=== PATIENT | female | born 1945 | race Hispanic/Latino ===

== ENCOUNTER 2018-04-27 13:34 | Observation (INO) | payer MEDICAID, OTHER, SELFPAY ==
--- NOTE | 2018-04-27 14:21 | RAD REPORT ---
EXAM DESCRIPTION: RAD - Chest Pa And Lat (2 Views) - 04/27/2018 2:13 pm CLINICAL HISTORY: COUGH Chest pain. COMPARISON: No comparisons FINDINGS: Large area of lung consolidation is seen in the anterior right lung base. In the correct c linical setting, this could represent pneumonia. Neoplasm is another possibility. The heart is mildly prominent size. No displaced fractures. Aortic atherosclerosis.
--- NOTE | 2018-04-27 15:26 | EKG ---
Test Date: 2018-04-27 Test Time: 14:54:47 Electric Blasting Cap Assembler: ROBERTO MEASUREMENT RESULTS: Intervals: Rate: 67 MT: 164 QRSD: 80 QT: 366 QTc: 386 [place]: P: 67 MT: 164 QRS: 51 T: 47 INTERPRETIVE STATEMENTS: Normal sinus rhythm Normal ECG No previous ECG available for comparison Electronically Signed On 04-27-18 15:25:13 CDT by Andrei Talley
[2018-04-27 15:40] LABS: Absolute Lymphocytes (CBC) 1.3 K/uL (0.7-4.9); Absolute Monocytes 0.8 K/uL (0.1-1.3); Absolute Neutrophil 10.1 K/uL (1.8-8.0); Basophils % 0.4 % (0-1.3); Hematocrit 30.3 % (36.0-45.0); Lymphocytes % 10.2 % (15.3-44.8); MCH 29.1 pg (27.0-35.0); MCV 87.3 fL (80-100); MPV 8.7 fL (7.6-11.3); Monocytes % 6.7 % (3.3-12.3); RBC Red Blood Cell Count 3.47 M/uL (3.86-4.86)
[2018-04-27 16:08] LABS: ALT/SGPT 20 U/L (12-78); AST/SGOT 21 U/L (15-37); Albumin 2.8 g/dL (3.4-5.0); Alkaline Phosphatase 73 U/L (45-117); BUN Blood Urea Nitrogen 27 mg/dL (7-18); Bicarbonate 30 mmol/L (21-32); Bilirubin Direct < 0.1 mg/dL (0-0.2); Bilirubin Total 0.2 mg/dL (0.2-1.0); CKMB Creatine Kinase MB < 1.0 ng/mL (0.3-3.6); Creatine Phosphokinase 18 U/L (26-192); Glucose Level 109 mg/dL (74-106); NT PRO-BNP 1207 pg/mL (<450); Potassium 4.4 mmol/L (3.5-5.1); Protein, Total 7.5 g/dL (6.4-8.2); Sodium Level 132 mmol/L (136-145)
[2018-04-27 16:11] LABS: Protime INR 1.19
[2018-04-27] MEDS ORDERED: NA CHLORIDE 0.9% 1,000 ML ONE (16:45)
--- NOTE | 2018-04-27 16:48 | RAD REPORT ---
EXAM DESCRIPTION: CT - Chest For Pe Angio - 04/27/2018 4:36 pm CLINICAL HISTORY: Chest pain COMPARISON: None. TECHNIQUE: Dynamically enhanced axial 3 mm thick images of the chest were obtained during administra tion of <100> mL Isovue 370 IV contrast. Coronal and oblique reconstruction images were generated and reviewed. Exam utilizes a protocol for optimal evaluation of pulmonary arterial tree. Maximum intensity projections 3D imaging was utilized All CT scans are performed using dose optimization technique as appropriate and may include automated exposure control or mA/KV adjustment according to patient size. FINDINGS: A pulmonary embolus is not seen. A thoracic aortic aneurysm is not noted. A small right pleural effusion is present. A pericardial effusion is not seen. A 10 centimeter mass occupies the right middle lobe extending through the chest wall and destroying s everal right ribs. Portions of the mass or necrotic. A right pretracheal mediastinal lymph node measures 15 millimeters. Mild right hilar lymphadenopathy is present. IMPRESSION: Negative for a pulmonary embolism. 10 centimeter right middle lobe mass invading into the right anterolateral chest wall and destroying several ribs consistent with neoplasm. Enlarged right hilar and mediastinal lymph nodes are present
--- NOTE | 2018-04-27 17:17 | ER ---
Nurse's Notes [facility] Name: Yayo Ospina Age: 73 yrs Sex: Female : 1945 Arrival Date: 04/27/2018 Time: 13:45 Bed 28 Private MD: Diagnosis: Malignant neoplasm of middle lobe, bronchus or lung-with rib metastasis Presentation: 04/27 13:48 Presenting complaint: Patient states: Right chest wall pain for 2 months. Seen by [facility] aj 1 month ago and DX with pneumonia, did not improve after meds. Transition of care: patient was not received from another setting of care. Onset of symptoms was February 2018. Risk Assessment: Do you want to hurt yourself or someone else? Patient reports no desire to harm self or others. Initial Sepsis Screen: Does the patient meet any 2 criteria? No. Patient's initial sepsis screen is negative. Does the patient have a suspected source of infection? No. Patient's initial sepsis screen is negative. Care prior to arrival: None. 13:48 Method Of Arrival: Wheelchair 13:48 Acuity: NIKO 3 Triage Assessment: 13:50 General: Appears in no apparent distress. comfortable, Behavior is calm, cooperative, aj appropriate for age. Pain: Complains of pain in anterior aspect of right upper chest, right lateral posterior chest, right lateral anterior chest and right breast. Neuro: Level of Consciousness is awake, alert, obeys commands, Oriented to person, place, time, situation, Appropriate for age. Cardiovascular: Capillary refill < 3 seconds in bilateral fingers Patient's skin is warm and dry. Respiratory: Airway is patent Respiratory effort is even, unlabored, Respiratory pattern is regular, symmetrical. Derm: Skin is intact, is healthy with good turgor, Skin is pink, warm \T\ dry. normal. 13:50 Respiratory: Reports cough that is. aj Historical: - Allergies: 13:50 No Known Allergies; aj - Home Meds: 13:50 None [Active]; aj - PMHx: 13:50 Hypertension; aj - PSHx: 13:50 None; aj - Immunization history:: Adult Immunizations up to date. - Social history:: Smoking status: Patient/guardian denies using tobacco, the patient reports quitting approximately .2 years ago. - Ebola Screening: : Patient negative for fever greater than or equal to 101.5 degrees Fahrenheit, and additional compatible Ebola Virus Disease symptoms Patient denies exposure to infectious person Patient denies travel to an Ebola-affected area in the 21 days before illness onset No symptoms or risks identified at this time. Screenin:30 Abuse screen: Denies threats or abuse. Denies injuries from another. Nutritional ed1 screening: No deficits noted. Tuberculosis screening: No symptoms or risk factors identified. Fall Risk No fall in past 12 months (0 pts). No secondary diagnosis (0 pts). IV access (20 points). Ambulatory Aid- None/Bed Rest/Nurse Assist (0 pts). Gait- Normal/Bed Rest/Wheelchair (0 pts) Mental Status- Oriented to own ability (0 pts). Total Sheffield Fall Scale indicates No Risk (0-24 pts). Assessment: 15:30 General: Appears uncomfortable, Behavior is calm, cooperative. Pain: Complains of pain ed1 in chest Pain does not radiate. Pain currently is 6 out of 10 on a pain scale. Quality of pain is described as aching, Pain began 2-3 days ago. Is continuous. Neuro: Level of Consciousness is awake, alert, obeys commands, Oriented to person, place, time, situation. Cardiovascular: Heart tones S1 S2 present. Respiratory: Reports shortness of breath at rest Airway is patent Respiratory effort is even, unlabored, Respiratory pattern is regular, symmetrical, Breath sounds are diminished in right lower lobe. GI: No signs and/or symptoms were reported involving the gastrointestinal system. : No signs and/or symptoms were reported regarding the genitourinary system. EENT: No signs and/or symptoms were reported regarding the EENT system. Derm: Skin is pink, warm \T\ dry. 15:45 General: The previous assessment is accurate. Call light remains within reach. . ss 16:46 Reassessment: Patient appears in no apparent distress at this time. No changes from ed1 previously documented assessment. Patient and/or family updated on plan of care and expected duration. Pain level reassessed. Patient is alert, oriented x 3, equal unlabored respirations, skin warm/dry/pink. Patient states symptoms have not improved. 18:56 Reassessment: Patient appears in no apparent distress at this time. No changes from ed1 previously documented assessment. Patient and/or family updated on plan of care and expected duration. Pain level reassessed. Patient is alert, oriented x 3, equal unlabored respirations, skin warm/dry/pink. Vital Signs: 13:50 BP 119 / 61; Pulse 74; Resp 20; Temp 99.5; Pulse Ox 94% on R/A; Weight 65.32 kg; Height aj 4 ft. 11 in. (149.86 cm); 15:40 BP 117 / 86; Pulse 78; Resp 20; Temp 98.9(O); Pulse Ox 98% on R/A; Pain 6/10; ed1 16:46 BP 140 / 69; Pulse 66; Resp 22; Pulse Ox 96% on R/A; Pain 6/10; ed1 18:56 BP 129 / 85; Pulse 75; Resp 22; Pulse Ox 97% on R/A; Pain 1/10; ed1 19:29 BP 147 / 53; Pulse 74; Resp 20; Temp 97.2(O); Pulse Ox 97% on R/A; Pain 0/10; ed1 13:50 Body Mass Index 29.08 (65.32 kg, 149.86 cm) ED Course: 13:45 Patient arrived in ED. 13:50 Triage completed. 13:50 Arm band placed on right wrist. Patient placed in waiting room, Patient notified of wait time. X-ray ordered. 14:10 Patient moved to radiology via wheelchair. [facility] 14:11 X-ray completed. Patient tolerated procedure well. [facility] 14:11 Chest Pa And Lat (2 Views) XRAY In Process Unspecified. EDTX 14:11 Patient moved back from radiology. 1 15:27 Ale Kilgore LVN is Primary Nurse. ed1 15:30 Marycarmen Beal FNP-C is PHCP. snw 15:30 César Garcia MD is Attending Physician. snw 15:30 Patient has correct armband on for positive identification. Placed in gown. Bed in low ed1 position. Call light in reach. Side rails up X2. Adult w/ patient. monitoring specialist on. Pulse ox on. NIBP on. 15:30 Initial lab(s) drawn, by ED staff, sent to lab. Inserted saline lock: 20 gauge in right ed1 antecubital area, using aseptic technique. Blood collected. Patient maintains SpO2 saturation greater than 95% on room air. 16:[address] mw3 16:37 CT Chest For PE Angio In Process Unspecified. EDMS 17:15 Enma Feliz MD is Hospitalizing Provider. snw 20:28 No provider procedures requiring assistance completed. Patient admitted, IV remains in ed1 place. intact, No redness/swelling at site. Administered Medications: 16:49 Drug: NS 0.9% 1000 ml Route: IV; Rate: 75 ml/hr; Site: right antecubital; ed1 20:36 Follow up: IV Status: Infusion continued upon admission ed1 17:52 Drug: fentaNYL (PF) 50 mcg Route: IVP; Site: right antecubital; 20:37 Follow up: Response: No adverse reaction; Pain is decreased ed1 Outcome: 17:16 Decision to Hospitalize by Provider. snw 20:28 Admitted to Tele accompanied by nurse, family with patient, via wheelchair, room 419, ed1 with chart. 20:28 Condition: stable 20:28 Discharge instructions given to patient, family, Instructed on the need for admit, Demonstrated understanding of instructions. 20:35 Patient left the ED. ed1 Signatures: Dispatcher [employer] EDMS Obdulia Tenorio, RN RN Marycarmen Leiva, CORRECTIONAL FACILITY PSYCHIATRIST-C CORRECTIONAL FACILITY PSYCHIATRIST-Csnw Claudia Blevins 1 Suzan Lennon, ÁLVARO RN Ale Vuong LVN REGULATORY CONSULTANT ed1 Megan Harper mw3
--- NOTE | 2018-04-27 17:17 | EDPHYS ---
Physician Documentation [facility] Name: Yayo Ospina Age: 73 yrs Sex: Female : 1945 Arrival Date: 04/27/2018 Time: 13:45 Bed 28 Private MD: ED Physician César Garcia HPI: 04/27 15:58 This 73 yrs old Female presents to ER via Wheelchair with complaints of Chest snw Wall Pain. 15:58 Onset: The symptoms/episode began/occurred gradually, 2 month(s) ago, and became snw persistent. Associated signs and symptoms: Pertinent positives: chest wall pain, cough, no fever, + significant weight loss. Stopped smoking about 2 months ago when s/s began. It is unknown whether or not the patient has had similar symptoms in the past. one month ago at [facility] dx with right lower lobe pneumonia, took antibiotics without change in condition. Historical: - Allergies: 13:50 No Known Allergies; aj - Home Meds: 13:50 None [Active]; aj - PMHx: 13:50 Hypertension; aj - PSHx: 13:50 None; aj - Immunization history:: Adult Immunizations up to date. - Social history:: Smoking status: Patient/guardian denies using tobacco, the patient reports quitting approximately .2 years ago. - Ebola Screening: : Patient negative for fever greater than or equal to 101.5 degrees Fahrenheit, and additional compatible Ebola Virus Disease symptoms Patient denies exposure to infectious person Patient denies travel to an Ebola-affected area in the 21 days before illness onset No symptoms or risks identified at this time. ROS: 15:58 Eyes: Negative for injury, pain, redness, and discharge, ENT: Negative for injury, snw pain, and discharge, Neck: Negative for injury, pain, and swelling. 15:58 Abdomen/GI: Negative for abdominal pain, nausea, vomiting, diarrhea, and constipation, Back: Negative for injury and pain, : Negative for injury, bleeding, discharge, and swelling, MS/Extremity: Negative for injury and deformity, Skin: Negative for injury, rash, and discoloration, Neuro: Negative for headache, weakness, numbness, tingling, and seizure. 15:58 Constitutional: Positive for fatigue, malaise, poor PO intake. 15:58 Cardiovascular: Positive for chest wall pain to right lower chest. 15:58 Respiratory: Positive for cough, dyspnea on exertion, pleurisy. Exam: 16:00 Head/Face: Normocephalic, atraumatic. Eyes: Pupils equal round and reactive to light, snw extra-ocular motions intact. Lids and lashes normal. Conjunctiva and sclera are non-icteric and not injected. Cornea within normal limits. Periorbital areas with no swelling, redness, or edema. ENT: Nares patent. No nasal discharge, no septal abnormalities noted. Tympanic membranes are normal and external auditory canals are clear. Oropharynx with no redness, swelling, or masses, exudates, or evidence of obstruction, uvula midline. Mucous membranes moist. Neck: Trachea midline, no thyromegaly or masses palpated, and no cervical lymphadenopathy. Supple, full range of motion without nuchal rigidity, or vertebral point tenderness. No Meningismus. Chest/axilla: Normal chest wall appearance and motion. Nontender with no deformity. No lesions are appreciated. Cardiovascular: Regular rate and rhythm with a normal S1 and S2. No gallops, murmurs, or rubs. Normal PMI, no JVD. No pulse deficits. 16:00 Abdomen/GI: Soft, non-tender, with normal bowel sounds. No distension or tympany. No guarding or rebound. No evidence of tenderness throughout. Back: No spinal tenderness. No costovertebral tenderness. Full range of motion. Skin: Warm, dry with sluggish turgor. Normal color with no rashes, no lesions, and no evidence of cellulitis. MS/ Extremity: Pulses equal, no cyanosis. Neurovascular intact. Full, normal range of motion. Neuro: Awake and alert, GCS 15, oriented to person, place, time, and situation. Cranial nerves II-XII grossly intact. Motor strength 5/5 in all extremities. Sensory grossly intact. Cerebellar exam normal. Normal gait. 16:00 Constitutional: The patient appears awake, listless, uncomfortable. 16:00 Respiratory: the patient does not display signs of respiratory distress, Respirations: normal, Breath sounds: decreased breath sounds, that are moderate, that are severe, are heard in the left posterior lower lobe. Vital Signs: 13:50 BP 119 / 61; Pulse 74; Resp 20; Temp 99.5; Pulse Ox 94% on R/A; Weight 65.32 kg; Height aj 4 ft. 11 in. (149.86 cm); 15:40 BP 117 / 86; Pulse 78; Resp 20; Temp 98.9(O); Pulse Ox 98% on R/A; Pain 6/10; ed1 16:46 BP 140 / 69; Pulse 66; Resp 22; Pulse Ox 96% on R/A; Pain 6/10; ed1 18:56 BP 129 / 85; Pulse 75; Resp 22; Pulse Ox 97% on R/A; Pain 1/10; ed1 19:29 BP 147 / 53; Pulse 74; Resp 20; Temp 97.2(O); Pulse Ox 97% on R/A; Pain 0/10; ed1 13:50 Body Mass Index 29.08 (65.32 kg, 149.86 cm) aj MDM: 15:39 Patient medically screened. snw 17:16 Data reviewed: vital signs, nurses notes. Data interpreted: Pulse oximetry: on room air snw is 96 %. Interpretation: acceptable. Counseling: I had a detailed discussion with the patient and/or guardian regarding: the historical points, exam findings, and any diagnostic results supporting the discharge/admit diagnosis, the presence of at least one elevated blood pressure reading (>120/80) during this emergency department visit, lab results, radiology results, the need for further work-up and treatment in the hospital. Physician consultation: Enma Feliz MD was called at 17:17, was contacted at 17:17, regarding admission, to the telemetry unit. Special discussion: Based on the history and exam findings, there is no indication for further emergent testing or inpatient evaluation. I discussed with the patient/guardian the need to see the primary care provider for further evaluation of the symptoms. Oncology. 04/27 14:47 Order name: Basic Metabolic Panel; Complete Time: 16:11 snw 04/27 14:47 Order name: CBC with Diff; Complete Time: 15:43 snw 04/27 14:47 Order name: Ckmb; Complete Time: 16:11 snw 04/27 14:47 Order name: CPK; Complete Time: 16:11 snw 04/27 14:47 Order name: LFT's; Complete Time: 16:11 snw 04/27 14:47 Order name: Magnesium; Complete Time: 16:11 snw 04/27 14:47 Order name: NT PRO-BNP; Complete Time: 16:11 w 04/27 14:47 Order name: PT-INR; Complete Time: 16:16 [facility] 04/27 14:47 Order name: Ptt, Activated; Complete Time: 16:16 04/27 14:47 Order name: Troponin (emerg Dept Use Only); Complete Time: 16:11 w 04/27 18:12 Order name: CBC with Automated Diff EDMS 04/27 18:12 Order name: CBC with Automated Diff EDMS 04/27 18:12 Order name: CBC with Automated Diff EDMS 04/27 18:12 Order name: CBC with Automated Diff EDMS 04/27 13:52 Order name: Chest Pa And Lat (2 Views) XRAY; Complete Time: 14:45 04/27 14:46 Order name: CT Chest For PE Angio; Complete Time: 16:55 [facility] 04/27 14:47 Order name: EKG; Complete Time: 14:48 [facility] 04/27 14:47 Order name: Cardiac monitoring; Complete Time: 15:39 [facility] 04/27 18:12 Order name: CONS Physician Consult [facility] 04/27 18:12 Order name: Heart Healthy [facility] 04/27 18:12 Order name: NPO [facility] 04/27 18:12 Order name: Comprehensive Metabolic Panel [facility] 04/27 18:12 Order name: Comprehensive Metabolic Panel [facility] 04/27 18:12 Order name: Comprehensive Metabolic Panel [facility] 04/27 18:12 Order name: Comprehensive Metabolic Panel [facility] 04/27 18:21 Order name: Urinalysis W/Microscopic [facility] 04/27 14:47 Order name: EKG - Nurse/Tech; Complete Time: 15:39 04/27 14:47 Order name: IV Saline Lock; Complete Time: 15:39 [facility] 04/27 14:47 Order name: Labs collected and sent; Complete Time: 15:39 [facility] 04/27 14:47 Order name: O2 Per Protocol; Complete Time: 15:39 04/27 14:47 Order name: O2 Sat Monitoring; Complete Time: 15:39 snw Administered Medications: 16:49 Drug: NS 0.9% 1000 ml Route: IV; Rate: 75 ml/hr; Site: right antecubital; ed1 20:36 Follow up: IV Status: Infusion continued upon admission ed1 17:52 Drug: fentaNYL (PF) 50 mcg Route: IVP; Site: right antecubital; ss 20:37 Follow up: Response: No adverse reaction; Pain is decreased ed1 Disposition: 04/28 06:54 Co-signature as Attending Physician, César Garcia MD I agree with the assessment and caty plan of care. Disposition: 04/27/18 17:16 Hospitalization ordered by Enma Feliz for Observation. Preliminary diagnosis is Malignant neoplasm of middle lobe, bronchus or lung - with rib metastasis. - Bed requested for Telemetry/MedSurg (observation). - Status is Observation. ed1 - Condition is Fair. - Problem is new. - Symptoms are unchanged. UTI on Admission? No Signatures: Dispatcher [employer] EDMS Obdulia Tenorio, RN César Ly MD MD cha Therrien, Shelly, GENERAL ROAD PRODUCTION MANAGER-C GENERAL ROAD PRODUCTION MANAGER-Csnw Suzan Lennon RN RN ss Riggs, Ale, SKI LIFT OPERATOR SKI LIFT OPERATOR ed1 Kristine Garza Corrections: (The following items were deleted from the chart) 04/27 18:21 18:12 Protime (+INR) ordered. EDRI EDMS 18:21 18:12 Protime (+INR) ordered. EDRI EDMS 19:21 17:16 Hospitalization Ordered by Enma Feliz MD for Observation. Preliminary diagnosis eb is Malignant neoplasm of middle lobe, bronchus or lung - with rib metastasis. Bed requested for Telemetry/MedSurg (observation). Status is Observation. Condition is Fair. Problem is new. Symptoms are unchanged. UTI on Admission? No. snw 20:35 19:21 04/27/2018 17:16 Hospitalization Ordered by Enma Feliz MD for Observation. ed1 Preliminary diagnosis is Malignant neoplasm of middle lobe, bronchus or lung - with rib metastasis. Bed requested for Telemetry/MedSurg (observation). Status is Observation. Condition is Fair. Problem is new. Symptoms are unchanged. UTI on Admission? No. eb
[2018-04-27] MEDS ORDERED: FENTANYL CITR 100 MCG/2 ML ONE (17:53)
[2018-04-27] MEDS ORDERED: MORPHINE 4 MG/ML SYR IV PRN (18:09)
[2018-04-27] MEDS ORDERED: ACETAMINOPHEN 500 MG TAB PO PRN (18:09)
[2018-04-27] MEDS ORDERED: ALBUTEROL 2.5 MG/3 ML NEB SOL NEB PRN (18:09)
[2018-04-27] MEDS ORDERED: ONDANSETRON 4 MG/2 ML VIAL IV PRN (18:09)
[2018-04-27] MEDS: NA CHLORIDE 0.9% 1,000 ML IV SCH (21:20)
[2018-04-27 23:47] LABS: Urine Appearance CLEAR; Urine Bilirubin NEGATIVE (NEG); Urine Blood NEGATIVE (NEG); Urine Color YELLOW; Urine Glucose NEGATIVE (NEG); Urine Protein TRACE (NEG); Urine Specific Gravity >=1.030 (1.005-1.030); Urine pH 6.5 (5.0-7.0)
[2018-04-28 00:38] LABS: Urine Bacteria <20 /HPF (<20); Urine Culture Reflex Order REFLEXED; Urine RBC NONE SEEN /HPF (NONE SEEN)
--- NOTE | 2018-04-28 02:42 | HP ---
Date of Admission: 04/27/2018 Chief Complaint: Chest pain and back pain. Primary Care Physician: None. Code Status: Full. History Of Present Illness: The patient is a 73-year-old female with past medical history of hypertension. The patient was in her usual state of health until 1 month prior to admission when the patient had some shortness of breath, cough, sputum production, and was diagnosed with pneumonia at [facility], was given antibiotics by mouth and was discharged home. The patient, however, kept having some pain in her chest on the right side underneath her breast. She had mammogram done 3 months ago, which was negative and therefore came into the hospital for further evaluation. The patient denies any hemoptysis, fever, chills, cough, sputum production, or any ill contacts. Of note, the patient has smoked 1 pack per day for the past 51 years. Quit smoking approximately 1 month ago. The patient's symptoms are constant, moderate, progressively worsening. No alleviating factors. Her workup revealed white count of 12,000 with left shift. Her calcium was high at 10.7 and BNP was elevated at 1207. Troponin was negative. Chest x-ray revealed large area of lung consolidation in the anterior right lung base. CT angio chest was done which ruled out PE, was found to have 10 cm right middle lobe mass invading to the right anterolateral chest wall and destroying several ribs consistent with neoplasm. Enlarged right hilar and mediastinal lymph nodes are present. The patient was then referred for admission for a lung mass. When seen in the ER, she was awake , alert, oriented x3, in some mild distress due to pain. Past Medical History: Hypertension. Past Surgical History: None. Allergies: NO KNOWN DRUG ALLERGIES. Medications: List reviewed. Social History: The patient smoked 1 pack per day for the past 51 years. No alcohol use or illicit drug use. The patient has good social support. Independent in her activities of daily living. Family History: Her father had cirrhosis. Review of Systems: An 11-point system reviewed, negative except as per HPI. Physical Examination: Vital Signs: Blood pressure 119/61, pulse 74, respirations 20, temperature 99.5 , O2 94% on room air. General: Awake, alert, oriented x3, in some mild distress due to pain. Morbidly obese female. HEENT: Normocephalic, atraumatic. PERRLA. EOMI. Moist mucous membranes. Oropharynx is clear. Poor dentition. Conjunctivae are anicteric. Neck: Supple. No JVD. Trachea midline. CV: S1, S2. No murmurs. Regular rate and rhythm. Peripheral pulses are present. Respiratory: Diminished breath sounds on the right, moving air well on the left. No wheezing, stridor, or use of accessory muscles. Gastrointestinal: Abdomen is soft, nontender, nondistended. Positive bowel sounds. No guarding or rigidity. Extremities: No clubbing, cyanosis, or edema. No calf tenderness. Neuro: Cranial nerves 2 through 12 intact grossly. No focal neurological deficit. Speech is normal. Strength is 5/5 bilateral upper and lower extremities. Sensation intact to light touch. Skin: No rashes. Normal skin turgor. Musculoskeletal: Tenderness to palpation underneath the right breast, lateral aspect, on the rib. Psych: Mood is okay. Affect is full. Insight and judgment are fair. Laboratory Data: Sodium 132, potassium 4.4, chloride 96, CO2 30, BUN 27, creatinine 1.10, glucose 109, calcium 10.7, magnesium 2. Troponin less than 0.02. BNP 1207. Albumin 2.8. INR 1.19. WBC 12.3, H and H 10.1 and 30.3, platelets 334, neutrophils 81%. Diagnostic Data: CT scan of the chest shows negative for PE, 10 cm right middle lobe mass invading into the right anterolateral chest wall, destroying several ribs consistent with neoplasm. Enlarged right hilar and mediastinal lymph nodes are present. Chest x-ray, personally reviewed, shows large area of lung consolidation seen in the anterior right lung base. Mildly prominent size. No fractures. EKG shows sinus rhythm, rate of 67, no ST or T-wave changes. Assessment And Plan: A 73-year-old female with, 1. Right middle lobe lung mass invading into the surrounding ribs likely lung cancer. Mass is 10 cm, likely advanced stage disease. We will obtain Pulmonary consultation and Oncology consultation. The patient is likely not a candidate for curative therapy, will likely have palliation. I would recommend hospice at this time; however, family is interested in pursuing diagnosis with biopsy, bronchoscopy. We will discuss further with Oncology and Dr. Kathleen. Overall, poor prognosis. 2. Hypercalcemia, likely related to lung mass. We will continue with IV fluids. 3. Hyponatremia. We will continue with IV fluids. 4. Leukocytosis with neutrophilia. The patient was recently treated for pneumonia. Currently no clinical signs or symptoms. We will obtain UA. 5. Morbid obesity. 6. Essential hypertension. We will resume home medications as appropriate. 7. Gastrointestinal and deep venous thrombosis prophylaxis with proton pump inhibitor and sequential compression devices. No chemical anticoagulation due to possible intervention in a.m. No medical power of estate planning attorney or living will ERIN Voice ID: [id number] MTDD
[2018-04-28 06:05] LABS: Absolute Lymphocytes (CBC) 1.3 K/uL (0.7-4.9); Absolute Neutrophil 9.2 K/uL (1.8-8.0); Basophils % 0.7 % (0-1.3); Eosinophils % 2.1 % (0-4.4); Hematocrit 26.7 % (36.0-45.0); Lymphocytes % 11.2 % (15.3-44.8); MCH 28.9 pg (27.0-35.0); MCV 87.6 fL (80-100); MPV 8.9 fL (7.6-11.3); Monocytes % 8.8 % (3.3-12.3); RBC Red Blood Cell Count 3.05 M/uL (3.86-4.86)
[2018-04-28] MEDS: NA CHLORIDE 0.9% 1,000 ML IV SCH ×3 (06:24→21:48)
[2018-04-28 06:28] LABS: Albumin 2.4 g/dL (3.4-5.0); Bilirubin Total 0.2 mg/dL (0.2-1.0); Potassium 4.1 mmol/L (3.5-5.1); Protein, Total 6.4 g/dL (6.4-8.2)
[2018-04-28] MEDS ORDERED: PNEUMOCOCCAL VACCINE 0.5 ML IMVAC ONE (08:00)
--- NOTE | 2018-04-28 08:30 | P.CNS ---
Date of Consult: 04/28/18 Reason for Consult: Right-sided lung mass Chief Complaint: Right-sided chest pain weight loss History of Present Illness: Patient is 73 years of age Ghanaian-speaking only a former heavy smoker admitted to the hospital complaining of severe right-sided chest pain cough sputum patient was seen at [facility] a month ago and was discharged with a diagnosis of pneumonia she is found to have a very large lung mass extending through the chest wall this appears to be very large necrotic chest miles extending through the chest wall Allergies No Known Allergies Allergy (Unverified 04/27/18 19:55) Home Medications: Acetaminophen with Codeine [Tylenol with Codeine #4 Tablet] 1 each PO DAILY PRN 04/27/18 Alendronate Sodium 70 mg PO EVERY 7TH DAY 04/27/18 Lovastatin 40 mg PO DAILY 04/27/18 Senosides [Senokot] 2 tab PO BID 04/27/18 - Past Medical/Surgical History Diabetic: No -: HTN - Family History Father Medical History: Cancer mo Medical History: Lung disease Notes: from TB - Social History Alcohol use: No CD- Drugs: No Caffeine use: Yes Place of Residence: Home Review of Systems is unable to be obtained Physical Examination Temp Pulse Resp BP Pulse Ox 98.0 F 65 19 133/59 L 93 04/28/18 08:00 04/28/18 08:00 04/28/18 08:00 04/28/18 08:00 04/28/18 04:00 General: Alert, Cooperative HEENT: Atraumatic Neck: Supple Respiratory: Clear to auscultation bilaterally, Other (She has significant chest wall tenderness) Cardiovascular: No edema Gastrointestinal: Normal bowel sounds, Soft and benign Musculoskeletal: No clubbing, No swelling Integumentary: No rashes, No breakdown Laboratory Data (last 24 hrs) 04/27/18 15:24: PT 14.1 H, INR 1.19, APTT 24.9 04/27/18 15:24: WBC 12.3 H, Hgb 10.1 L, Hct 30.3 L, Plt Count 334 04/27/18 15:24: Sodium 132 L, Potassium 4.4, BUN 27 H, Creatinine 1.10, Glucose 109 H, Magnesium 2.0, Total Bilirubin 0.2, AST 21, ALT 20, Alkaline Phosphatase 73 - Problems (1) Lung mass Current Visit: Yes Status: Acute Plan: Patient is 73 years of age admitted with right-sided chest pain she has a large necrotic lung mass extending through the chest wall with significant localized tenderness patient is mildly anemic differential diagnosis include lung cancer and actinomycosis patient will need to be scheduled for an FNA pain relief very heavy smoker iron studies discuss with patient's daughter and they are agreeable to a biopsy patient is not on any anticoagulants I have also started her on amoxicillin for the possibility of actinomycosis as it extends to the chest wall
[2018-04-28] MEDS: AMOXICILLIN TRIHYDR 250 MG CAP PO SCH ×3 (09:21→21:29)
[2018-04-28] MEDS ORDERED: FENTANYL CITR 100 MCG/2 ML ONE (10:11)
[2018-04-28] MEDS ORDERED: NALOXONE 0.4 MG/ML VIAL ONE (10:11)
[2018-04-28] MEDS ORDERED: MIDAZOLAM HCL 5 MG/5 ML INJ ONE (10:11)
[2018-04-28] MEDS ORDERED: NA CHLORIDE 0.9% 500 ML ONE (10:45)
--- NOTE | 2018-04-28 11:42 | RAD REPORT ---
EXAM DESCRIPTION: CT - Lung Biopsy Perc w/CT - 04/28/2018 11:34 am CLINICAL HISTORY: Right sided lung mass COMPARISON: Chest For Pe Angio dated 04/27/2018 FINDINGS: Preoperative diagnosis: Right-sided lung mass. Post operative diagnosis: Same Conscious Sedation: 45 minutes of IV conscious sedation utilizing fentanyl and midazolam. Patient was continuously monitored by nursing staff. Contrast used: NONE Estimated blood loss: less than 5 mL Specimens: 4 x 18 gauge 2 cm core specimens. The patient was placed flat on the table and the right upper chest area was prepped and draped in the usual sterile fashion. 1% lidocaine was infiltrated into the subcutaneous tissues for local anesthes ia. Under computed tomographic guidance, a 17 gauge introducer was advanced into the lesion. Subseque ntly, a 18 gauge, 6 cm long, 20 mm throw core biopsy gun was advanced into the lesion and 4 cores wer e obtained. Postprocedure imaging demonstrated no complications. Samples were given to pathology for analysis. Th e patient tolerated the procedure without immediate complication and transferred to the floor in stab le condition. IMPRESSION: Successful CT-guided biopsy right lung mass. 45 minutes IV conscious sedation was utilized. All CT scans are performed using dose optimization technique as appropriate and may include automated exposure control or mA/KV adjustment according to patient size.
[2018-04-28] MEDS ORDERED: MORPHINE 2 MG/ML SYR IV PRN (16:09)
--- NOTE | 2018-04-28 19:30 | PN ---
Date of Progress Note: 04/28/2018 Subjective: The patient seen and examined. Chart reviewed and case discussed with RN and Dr. Samuel hernandez. Family at the bedside. The patient went for CT guided lung biopsy today. Review of Systems: Negative except as above. Medications: Reviewed. Physical Examination: Vital Signs: Temperature 98, heart rate 65, blood pressure 133/59, respirations 19, O2 96% on room a ir. General: Awake, alert, oriented x3, in mild distress due to pain. CV: S1, S2. No murmurs. Respiratory: Diminished breath sounds on the right side. No wheezing. Gastrointestinal: Abdomen is soft, nontender, nondistended. Positive bowel sounds. Extremities: No clubbing, cyanosis, edema. Neurologic: Nonfocal. Laboratory Data: Sodium 135, potassium 4.1, chloride 101, CO2 27, BUN 19, creatinine 0.9, glucose 93 , calcium 9.9. Iron 18, total iron binding capacity 167, transferrin 119, ferritin 326, albumin 2.4. WBC 11.9, H and H 8.8, 26.7, platelets 306, neutrophils 77%. Fungal culture from the chest pending . Urine culture pending. Assessment And Plan: A 73-year-old female with: 1.Right middle lobe lung mass with invasion into the ribs, likely lung cancer. Mass is 10 cm. Poss ibility of actinomycosis is present. Appreciate Dr. Kathleen's input. FNA biopsy has been taken. W e will follow up on pathology results. Overall, poor prognosis. 2.Nicotine dependence with cigarette smoking. Counseled. 3.Hypercalcemia likely related to lung cancer. Corrected with IV fluids. 4.Hyponatremia, improved with IV fluid hydration. 5.Severe protein calorie malnutrition. Albumin is 2.4. 6.Leukocytosis with neutrophilia, improving. 7.Obesity. 8.Essential hypertension, stable. Resume home medications. 9.Gastrointestinal and deep venous thrombosis prophylaxis with PPI and SCDs. No chemical anticoagul ation due to recent procedure. Plan: Plan, follow up with pathology report. Iron deficiency anemia, we will start on iron suppleme nts. SA/MODL Voice ID: [id number] Report ID: [id number]
[2018-04-28] MEDS ORDERED: ATORVASTATIN 20 MG TAB PO SCH (21:00)
[2018-04-28] MEDS: SENOSIDES 8.6 MG TAB PO SCH (21:30)
[2018-04-28] MEDS: FERROUS SULFATE 325 MG TAB PO SCH (21:31)
[2018-04-28] MEDS: HYDROCODONE/APAP 5/325 MG TAB PO PRN (21:37)
[2018-04-29] MEDS: NA CHLORIDE 0.9% 1,000 ML IV SCH (05:00)
[2018-04-29 05:39] LABS: Absolute Lymphocytes (CBC) 0.9 K/uL (0.7-4.9); Absolute Monocytes 1.1 K/uL (0.1-1.3); Absolute Neutrophil 11.2 K/uL (1.8-8.0); Basophils % 0.6 % (0-1.3); Eosinophils % 1.8 % (0-4.4); Hematocrit 27.3 % (36.0-45.0); Lymphocytes % 6.4 % (15.3-44.8); MCH 28.5 pg (27.0-35.0); MCV 87.7 fL (80-100); MPV 8.6 fL (7.6-11.3); RBC Red Blood Cell Count 3.11 M/uL (3.86-4.86)
[2018-04-29 05:59] LABS: Albumin 2.3 g/dL (3.4-5.0); Bilirubin Total 0.3 mg/dL (0.2-1.0); Magnesium 1.9 mg/dL (1.8-2.4); Potassium 4.1 mmol/L (3.5-5.1); Protein, Total 6.4 g/dL (6.4-8.2)
[2018-04-29 07:30] VITALS: BMI 29.9
[2018-04-29] MEDS: SENOSIDES 8.6 MG TAB PO SCH (08:18)
[2018-04-29] MEDS: FERROUS SULFATE 325 MG TAB PO SCH (08:18)
[2018-04-29] MEDS: AMOXICILLIN TRIHYDR 250 MG CAP PO SCH ×2 (08:18→14:14)
[2018-04-29] MEDS: HYDROCODONE/APAP 5/325 MG TAB PO PRN (13:35)
[2018-04-29 16:01] VITALS: BP 126/60; TEMP 98.1
[2018-04-29 17:23] VITALS: O2SAT 99
--- NOTE | 2018-04-30 03:25 | DS ---
Date of Discharge: 04/29/2018 [employer] Worker: Dr. Kathleen with Pulmonology. Procedures: CT-guided lung biopsy on 04/28/2018 by [facility]. Admitting Diagnoses: 1.Right middle lobe lung mass invading to surrounding ribs. 2.Hypercalcemia. 3.Hyponatremia. 4.Leukocytosis with neutrophilia. 5.Morbid obesity. 6.Essential hypertension. Discharge Diagnoses: 1.Right middle lobe lung mass with invasion into the ribs. Status post CT-guided biopsy showing squ amous cell carcinoma. 2.Nicotine dependence with cigarette smoking. 3.Hypercalcemia. 4.Hyponatremia, resolved. 5.Severe protein-calorie malnutrition. 6.Leukocytosis with neutrophilia. 7.Obesity, body mass index 29.9. 8.Essential hypertension. 9.Iron-deficiency anemia, on iron. Hospital Course: The patient is a 73-year-old female, who comes in with chest pain on the right side and back pain. The patient was recently diagnosed with pneumonia at [facility] 1 month prior to admission, had finished her antibiotic course, however had continued pain on the right side undernea th her breast. She also had mammogram done 3 months ago, which was negative. The patient did not mehta ve any symptoms related to pneumonia. In the ER, her workup revealed a white count with left shift, elevated BNP, and calcium at 10.7. She did have some low sodium level. CT angio was done to rule ou t PE, however, did find 10 cm right middle lobe mass invading into the right anterolateral chest wall , destroying several ribs consistent with neoplasm. The patient was admitted for further evaluation and diagnosis. The family wished to pursue diagnosis. Therefore, FNA biopsy was arranged with [facility]. Dr. Kathleen with Pulmonology was also consulted. The patient's biopsy prelimi narily shows squamous cell carcinoma. Overall, the patient's prognosis is very poor, will have palli ative treatment. After family discussion, the patient and family wished to pursue hospice care, did not want any aggressive invasive treatments regarding her electrolytes. She was started on IV fluids . Her sodium improved to normal. Her calcium normalized. She was found to be anemic. Iron levels were low and she was started on iron. She also had low albumin and protein supplementation with prot ein shakes was initiated. The patient was then set up with hospice through [facility] as a venkatesh case a nd was discharged home with hospice. Medications: As per medication reconciliation list. Followup: Follow up with primary care physician. Return to ER for worsening condition. Diet: Heart healthy. Activity: As tolerated. Physical Examination: General: Awake, alert, oriented, in some mild distress elderly female. CV: S1, S2. No murmurs. Respiratory: Moving air well. Diminished breath sounds on the right. Gastrointestinal: Abdomen is soft, nontender, nondistended. Positive bowel sounds. Extremities: No clubbing, cyanosis, edema. Neurologic: Nonfocal. SA/MODL Voice ID: [id number] Report ID: [id number]
== END 2018-04-29 16:14 | disposition hospice, home (50) ==
LOC: ER 13:34 → ERHOLD 18:41 → 4TH 19:51
PROVIDERS: ADMIT Family Medicine; ATTEND Family Medicine
PROC: BW24ZZZ Computerized Tomography (CT Scan) of Chest and Abdomen (ICD-10-PCS; principal; 2018-04-28)
PROC: 0B9 Respiratory System, Drainage (ICD-10-PCS; 2018-04-28)
DX: C34.2 Malignant neoplasm of middle lobe, bronchus or lung (principal); C79.51 Secondary malignant neoplasm of bone; F17.210 Nicotine dependence, cigarettes, uncomplicated; E83.52 Hypercalcemia; E87.1 Hypo-osmolality and hyponatremia; E43 Unspecified severe protein-calorie malnutrition; Z68.29 Body mass index [BMI] 29.0-29.9, adult; D72.829 Elevated white blood cell count, unspecified; I10 Essential (primary) hypertension; D50.9 Iron deficiency anemia, unspecified; E66.01 Morbid (severe) obesity due to excess calories
CPT/HCPCS: 32405; 36415; 71046; 71275; 77012; 80048; 80053; 80076; 81001; 82550; 82553; 82728; 83540; 83735; 83880; 84466; 84484; 85025; 85610; 85730; 87086; 87088; 87102; 88305; 93005; 94760; 96361; 96374; 99285; G0378; J2250; J2310; J3010; J7030; Q9967

== ENCOUNTER 2018-06-14 16:42 | Emergency (ER) | payer OTHER, SELFPAY ==
[2018-06-14] MEDS ORDERED: ACETAMINOPHEN 500 MG TAB ONE (17:48)
[2018-06-14] MEDS ORDERED: ONDANSETRON 4 MG/2 ML VIAL ONE (18:17)
[2018-06-14] MEDS ORDERED: MORPHINE 4 MG/ML SYR ONE (18:17)
[2018-06-14 18:22] LABS: Absolute Lymphocytes (CBC) 0.8 K/uL (0.7-4.9); Absolute Neutrophil 18.4 K/uL (1.8-8.0); Basophils % 0.4 % (0-1.3); Eosinophils % 0.1 % (0-4.4); Hematocrit 28.2 % (36.0-45.0); Lymphocytes % 3.9 % (15.3-44.8); MCH 27.5 pg (27.0-35.0); MPV 8.6 fL (7.6-11.3); Monocytes % 5.1 % (3.3-12.3); RBC Red Blood Cell Count 3.35 M/uL (3.86-4.86)
[2018-06-14 18:42] LABS: Potassium 4.6 mmol/L (3.5-5.1)
[2018-06-14 18:47] LABS: Blood Morphology Comment NOT SEEN (NOT SEEN); Platelet Estimate ADEQ
--- NOTE | 2018-06-14 19:11 | RAD REPORT ---
EXAM DESCRIPTION: RAD - Chest Single View - 06/14/2018 6:41 pm CLINICAL HISTORY: Stage IV lung cancer, fever, weakness, pain and cough COMPARISON: CT study April 28, 2018, two view chest April 27, 2018 TECHNIQUE: AP portable chest image was obtained 1836 hours . FINDINGS: No acute infiltrates seen. Lung markings are similar to comparison. Patient has a known la rge lung parenchymal and chest wall invading mass anterior lower right lung field. This is not grossl y different from comparison. Trachea is midline. Heart and vasculature are normal. No measurable pleu ral effusion and no pneumothorax. No gross bony abnormality seen. No acute aortic findings suspected. IMPRESSION: Chronic interstitial lung disease. No focal pneumonia identified. Known anterior right lower lung field and chest wall mass stable from comparison.
[2018-06-14 19:21] LABS: Urine Blood NEGATIVE (NEG); Urine Glucose NEGATIVE (NEG); Urine Protein TRACE (NEG); Urine Specific Gravity 1.015 (1.005-1.030); Urine pH 6.5 (5.0-7.0)
[2018-06-14 19:26] LABS: Urine Bacteria <20 /HPF (<20); Urine Culture Reflex Order NOT NEEDED; Urine RBC <5 /HPF (NONE SEEN)
[2018-06-14] MEDS ORDERED: NA CHLORIDE 0.9% 1,000 ML ONE (19:50)
[2018-06-14] MEDS ORDERED: CEFTRIAXONE/SWI 1gm 1 GM/10 ML SYR ONE (19:50)
--- NOTE | 2018-06-14 20:08 | EDPHYS ---
Physician Documentation [facility] Name: Yayo Ospina Age: 73 yrs Sex: Female : 1945 Arrival Date: 06/14/2018 Time: 16:46 Bed 17 Private MD: None, None ED Physician Stephen Cook HPI: 06/14 17:38 This 73 yrs old Female presents to ER via Wheelchair with complaints of Fever pm1 - Stage 4 Lung CA. 17:38 The patient reports fever, not measured (subjective). Onset: The symptoms/episode pm1 began/occurred yesterday. Modifying factors: there are no obvious modifying factors. Associated signs and symptoms: Pertinent positives: cough, decreased appetite, Pertinent negatives: abdominal pain, diarrhea, nausea, skin rash, shortness of breath, sore throat, vomiting. Hospice patient with [facility] at home. Patient was diagnosed with Stage 4 lung cancer in April 2018. Family reports that she has been having fever and not eating as much since last night. Historical: - Allergies: 16:55 No Known Allergies; aj1 - Home Meds: 16:55 Robafen DM 10-100 mg/5 mL oral syrp 10 mL every 4 hours [Active]; tramadol 50 mg Oral aj1 tab 2 tabs every 6 hours [Active]; bisacodyl 5 mg Oral TbEC 1 tab [Active]; - PMHx: 16:55 Hypertension; stage 4 lung cancer; aj1 - Immunization history:: Flu vaccine is up to date. - Social history:: Smoking status: Patient/guardian denies using tobacco, the patient reports quitting approximately 0.5 years ago. - Ebola Screening: : Patient denies travel to an Ebola-affected area in the 21 days before illness onset. ROS: 17:38 Eyes: Negative for injury, pain, redness, and discharge, ENT: Negative for injury, pm1 pain, and discharge, Neck: Negative for injury, pain, and swelling, Cardiovascular: Negative for chest pain, palpitations, and edema. 17:38 Abdomen/GI: Negative for abdominal pain, nausea, vomiting, diarrhea, and constipation, Back: Negative for injury and pain, : Negative for injury, bleeding, discharge, and swelling, MS/Extremity: Negative for injury and deformity, Skin: Negative for injury, rash, and discoloration, Neuro: Negative for headache, weakness, numbness, tingling, and seizure. 17:38 Constitutional: Positive for fever, poor PO intake. 17:38 Respiratory: Positive for cough, Negative for shortness of breath, sputum production, wheezing. Exam: 17:38 Constitutional: This is a well developed, well nourished patient who is awake, alert, pm1 and in no acute distress. Head/Face: Normocephalic, atraumatic. Eyes: Pupils equal round and reactive to light, extra-ocular motions intact. Lids and lashes normal. Conjunctiva and sclera are non-icteric and not injected. Cornea within normal limits. Periorbital areas with no swelling, redness, or edema. ENT: Nares patent. No nasal discharge, no septal abnormalities noted. Tympanic membranes are normal and external auditory canals are clear. Oropharynx with no redness, swelling, or masses, exudates, or evidence of obstruction, uvula midline. Mucous membranes moist. Neck: Trachea midline, no thyromegaly or masses palpated, and no cervical lymphadenopathy. Supple, full range of motion without nuchal rigidity, or vertebral point tenderness. No Meningismus. Chest/axilla: Normal chest wall appearance and motion. Nontender with no deformity. No lesions are appreciated. Respiratory: Lungs have equal breath sounds bilaterally, clear to auscultation and percussion. No rales, rhonchi or wheezes noted. No increased work of breathing, no retractions or nasal flaring. Abdomen/GI: Soft, non-tender, with normal bowel sounds. No distension or tympany. No guarding or rebound. No evidence of tenderness throughout. Back: No spinal tenderness. No costovertebral tenderness. Full range of motion. Skin: Warm, dry with normal turgor. Normal color with no rashes, no lesions, and no evidence of cellulitis. MS/ Extremity: Pulses equal, no cyanosis. Neurovascular intact. Full, normal range of motion. 17:38 Cardiovascular: Rate: tachycardic, actual rate is 113 bpm, Rhythm: regular, Pulses: no pulse deficits are appreciated, Edema: is not appreciated. Vital Signs: 16:55 BP 111 / 73; Pulse 113; Resp 20 S; Temp 100.6(O); Pulse Ox 94% on R/A; Weight 63.5 kg aj1 (R); Height 4 ft. 9 in. (144.78 cm); Pain 0/10; 18:07 Temp 99.2(O); em 18:22 BP 103 / 67; Pulse 78; Resp 24; Pulse Ox 96% on 2 lpm NC; em 18:58 BP 97 / 62; Pulse 70; Resp 22; Pulse Ox 98% on 2 lpm NC; em 19:45 BP 117 / 71; Pulse 68; Resp 17; Pulse Ox 96% on 3 lpm NC; bs1 20:45 BP 102 / 55; Pulse 53; Resp 16 S; Pulse Ox 99% on 3 lpm NC; bs1 21:15 BP 100 / 81; Pulse 57; Resp 16 S; Temp 99.5(O); Pulse Ox 98% on 3 lpm NC; bs1 16:55 Body Mass Index 30.30 (63.50 kg, 144.78 cm) aj1 MDM: 17:06 Patient medically screened. pm1 17:48 Data reviewed: vital signs. pm1 20:02 Counseling: I had a detailed discussion with the patient and/or guardian regarding: the pm1 historical points, exam findings, and any diagnostic results supporting the discharge/admit diagnosis, lab results, radiology results, the need for outpatient follow up, to return to the emergency department if symptoms worsen or persist or if there are any questions or concerns that arise at home. 20:21 Special discussion: Patient and family do not want to be admitted. They want to go home pm1 to continue hospice care and to be prescribed antibiotics. Patient has pain medications and cough medications at home according to her oldest daughter. 06/14 17:20 Order name: Urine Microscopic Only; Complete Time: 19:42 pm1 06/14 17:20 Order name: CBC with Diff; Complete Time: 19:00 pm1 06/14 17:20 Order name: BMP; Complete Time: 19:00 pm1 06/14 17:20 Order name: Blood Culture Adult (2) pm1 06/14 17:20 Order name: Urine Culture pm1 06/14 18:29 Order name: Manual Differential; Complete Time: 19:00 EDMS 06/14 17:20 Order name: Chest Single View XRAY; Complete Time: 19:16 pm1 06/14 19:21 Order name: Urine Dipstick--Ancillary (enter results) eb 06/14 19:21 Order name: Urine Dipstick-Ancillary; Complete Time: 19:42 EDMS 06/14 19:25 Order name: Flu; Complete Time: 19:55 pm1 06/14 17:20 Order name: Urine Dipstick-Ancillary (obtain specimen); Complete Time: 21:13 pm1 06/14 17:20 Order name: Straight Cath - Urine; Complete Time: 19:31 pm1 Administered Medications: 17:55 Drug: Tylenol 1000 mg Route: PO; em 19:01 Follow up: Response: No adverse reaction; Temperature is decreased em 18:15 Drug: Zofran 4 mg Route: IVP; Site: right antecubital; hb 19:04 Follow up: Response: No adverse reaction em 18:46 Drug: morphine 2 mg Route: IVP; Site: right antecubital; hb 19:04 Follow up: Response: No adverse reaction; Pain is decreased em 19:53 Drug: NS 0.9% 1000 ml Route: IV; Rate: 1000 ml; Site: right forearm; bs1 21:41 Follow up: IV Status: Completed infusion bs1 19:54 Drug: Rocephin 1 grams Route: IV; Rate: calculated rate; Site: right forearm; bs1 20:34 Follow up: IV Status: Completed infusion bs1 Disposition: 06/14/18 20:08 Discharged to Home. Impression: Pneumonia, unspecified organism, Lung cancer, Hypercalcemia, Dehydration. - Condition is Stable. - Discharge Instructions: Dehydration, Elderly, Fever, Adult, Hypercalcemia, Community-Acquired Pneumonia, Adult. - Prescriptions for Augmentin 875- 125 mg Oral Tablet - take 1 tablet by ORAL route every 12 hours for 10 days; 20 tablet. Zithromax Z- Ede 250 mg Oral Tablet - take 1 tablet by ORAL route as directed for 5 days Day 1 - take two (2) tablets one time. Day 2, 3, 4 , 5 take one (1) tablet once daily.; 6 tablet. Albuterol Sulfate 90 mcg/actuation - inhale 1-2 puff by INHALATION route every 4-6 hours; 1 Inhaler. - Medication Reconciliation Form, Thank You Letter, Antibiotic Education, Prescription Opioid Use form. - Follow up: Emergency Department; When: As needed; Reason: Worsening of condition. - Problem is new. - Symptoms have improved. Addendum: 06/23/2018 08:26 Co-signature as Attending Physician, Stephen Cook MD. r n Signatures: Dispatcher [employer] Elsy Cabral, RN RN aj1 Mehran, Barry, DESIGN VERIFICATION ENGINEER DESIGN VERIFICATION ENGINEER em Stephen Cook MD MD rn Marinas, Patrick, [employer] pm1 Karie Barney, RN RN Kristina Mathews, RN RN bs1 Corrections: (The following items were deleted from the chart) 06/14 20:09 20:08 06/14/2018 20:08 Discharged to Home. Impression: Pneumonia, unspecified organism; pm1 Lung cancer; Hypercalcemia. Condition is Stable. Forms are Medication Reconciliation Form, Thank You Letter, Antibiotic Education, Prescription Opioid Use. Follow up: Emergency Department; When: As needed; Reason: Worsening of condition. Problem is new. Symptoms have improved. pm1 21:42 20:09 06/14/2018 20:08 Discharged to Home. Impression: Pneumonia, unspecified organism; bs1 Lung cancer; Hypercalcemia; Dehydration. Condition is Stable. Forms are Medication Reconciliation Form, Thank You Letter, Antibiotic Education, Prescription Opioid Use. Follow up: Emergency Department; When: As needed; Reason: Worsening of condition. Problem is new. Symptoms have improved. pm1
--- NOTE | 2018-06-14 20:08 | ER ---
Nurse's Notes [facility] Name: Yayo Ospina Age: 73 yrs Sex: Female : 1945 Arrival Date: 06/14/2018 Time: 16:46 Bed 17 Private MD: None, None Diagnosis: Pneumonia, unspecified organism;Lung cancer;Hypercalcemia;Dehydration Presentation: 06/14 16:51 Presenting complaint: Child states: "My mom has lung cancer and she's had a lot of aj1 fever and feeling very weak" Denies pain. Denies N/V/D. Denies cough, congestion. Transition of care: patient was not received from another setting of care. Onset of symptoms was June 13, 2018. Risk Assessment: Do you want to hurt yourself or someone else? Patient reports no desire to harm self or others. Initial Sepsis Screen: Does the patient meet any 2 criteria? Temp <36.0*C (96.8*F)) or > 38.3*C (100.4*F). HR > 90 bpm. Yes Does the patient have a suspected source of infection? No. Patient's initial sepsis screen is negative. Care prior to arrival: None. 16:51 Method Of Arrival: Wheelchair aj1 16:51 Acuity: NIKO 3 aj1 Triage Assessment: 16:55 General: Appears in no apparent distress. uncomfortable, Behavior is calm, cooperative, aj1 appropriate for age. Pain: Denies pain. Neuro: Level of Consciousness is awake, alert, obeys commands. Cardiovascular: Patient's skin is warm and dry. Respiratory: Airway is patent Respiratory effort is even, unlabored, Respiratory pattern is regular, symmetrical. Historical: - Allergies: 16:55 No Known Allergies; aj1 - Home Meds: 16:55 Robafen DM 10-100 mg/5 mL oral syrp 10 mL every 4 hours [Active]; tramadol 50 mg Oral aj1 tab 2 tabs every 6 hours [Active]; bisacodyl 5 mg Oral TbEC 1 tab [Active]; - PMHx: 16:55 Hypertension; stage 4 lung cancer; aj1 - Immunization history:: Flu vaccine is up to date. - Social history:: Smoking status: Patient/guardian denies using tobacco, the patient reports quitting approximately 0.5 years ago. - Ebola Screening: : Patient denies travel to an Ebola-affected area in the 21 days before illness onset. Screenin:09 Abuse screen: Denies threats or abuse. Nutritional screening: No deficits noted. em Tuberculosis screening: No symptoms or risk factors identified. Fall Risk None identified. Assessment: 17:45 General: Appears uncomfortable, Behavior is cooperative, flat. Pain: Denies pain. em Neuro: Level of Consciousness is awake, obeys commands, Oriented to person, place. Cardiovascular: Capillary refill < 3 seconds Patient's skin is warm and dry. Respiratory: Airway is patent Respiratory effort is even, unlabored, Respiratory pattern is regular, symmetrical. GI: Abdomen is round non-distended. : No signs and/or symptoms were reported regarding the genitourinary system. EENT: No signs and/or symptoms were reported regarding the EENT system. Derm: Skin is intact, Skin is pink, warm \\T\\ dry. Musculoskeletal: Range of motion: intact in all extremities. 17:49 Reassessment: I agree with previous assessment. hb 18:15 Reassessment: Patient appears in no apparent distress at this time. Patient and/or em family updated on plan of care and expected duration. Pain level reassessed. Patient is alert, oriented x 3, equal unlabored respirations, skin warm/dry/pink. placed on 2 L via NC. 19:05 Reassessment: Report received from MYA Reddy. bs1 19:05 General: Appears uncomfortable, ill, slender, Behavior is cooperative, flat. Pain: bs1 Denies pain. Neuro: Level of Consciousness is awake, obeys commands, Oriented to person, place. Cardiovascular: Denies chest pain, shortness of breath, Heart tones S1 S2 present Capillary refill < 3 seconds Patient's skin is warm and dry. Respiratory: Airway is patent Trachea midline Respiratory effort is even, unlabored, Respiratory pattern is regular, symmetrical, Breath sounds are clear bilaterally. GI: Abdomen is round non-distended, Bowel sounds present X 4 quads. : No signs and/or symptoms were reported regarding the genitourinary system. EENT: No signs and/or symptoms were reported regarding the EENT system. Derm: Skin is intact, Skin is pink, warm \\T\\ dry. normal. Musculoskeletal: Circulation, motion, and sensation intact. Capillary refill < 3 seconds, Range of motion: intact in all extremities. 20:30 Reassessment: Patient appears in no apparent distress at this time. Patient and/or bs1 family updated on plan of care and expected duration. Pain level reassessed. Patient is alert, oriented x 3, equal unlabored respirations, skin warm/dry/pink. Patient denies pain at this time. 21:30 Reassessment: Patient appears in no apparent distress at this time. No changes from bs1 previously documented assessment. Patient/family state understanding of discharge instructions/POC. Vital Signs: 16:55 BP 111 / 73; Pulse 113; Resp 20 S; Temp 100.6(O); Pulse Ox 94% on R/A; Weight 63.5 kg aj1 (R); Height 4 ft. 9 in. (144.78 cm); Pain 0/10; 18:07 Temp 99.2(O); em 18:22 BP 103 / 67; Pulse 78; Resp 24; Pulse Ox 96% on 2 lpm NC; em 18:58 BP 97 / 62; Pulse 70; Resp 22; Pulse Ox 98% on 2 lpm NC; em 19:45 BP 117 / 71; Pulse 68; Resp 17; Pulse Ox 96% on 3 lpm NC; bs1 20:45 BP 102 / 55; Pulse 53; Resp 16 S; Pulse Ox 99% on 3 lpm NC; bs1 21:15 BP 100 / 81; Pulse 57; Resp 16 S; Temp 99.5(O); Pulse Ox 98% on 3 lpm NC; bs1 16:55 Body Mass Index 30.30 (63.50 kg, 144.78 cm) aj1 ED Course: 16:46 Patient arrived in ED. as 16:47 None, None is Private Physician. as 16:54 Triage completed. aj1 16:55 Arm band placed on Patient placed in an exam room. aj1 16:59 Barry Laurent LVN is Primary Nurse. em 17:01 Silviano Alvarado NP is PHCP. pm1 17:01 Stephen Cook MD is Attending Physician. pm1 18:00 No provider procedures requiring assistance completed. Initial lab(s) drawn, by me, em sent to lab. Inserted saline lock: 20 gauge in right forearm, using aseptic technique. Blood collected. 18:09 Patient has correct armband on for positive identification. Bed in low position. Call em light in reach. Side rails up X2. Adult w/ patient. 18:42 Chest Single View XRAY In Process Unspecified. EDMS 19:19 Straight cath inserted, using sterile technique, Specimen obtained. jb5 19:31 Flu Sent. jb5 19:32 Urine Culture Sent. jb5 21:41 IV discontinued, bleeding controlled, No redness/swelling at site. Pressure dressing bs1 applied. Administered Medications: 17:55 Drug: Tylenol 1000 mg Route: PO; em 19:01 Follow up: Response: No adverse reaction; Temperature is decreased em 18:15 Drug: Zofran 4 mg Route: IVP; Site: right antecubital; hb 19:04 Follow up: Response: No adverse reaction em 18:46 Drug: morphine 2 mg Route: IVP; Site: right antecubital; hb 19:04 Follow up: Response: No adverse reaction; Pain is decreased em 19:53 Drug: NS 0.9% 1000 ml Route: IV; Rate: 1000 ml; Site: right forearm; bs1 21:41 Follow up: IV Status: Completed infusion bs1 19:54 Drug: Rocephin 1 grams Route: IV; Rate: calculated rate; Site: right forearm; bs1 20:34 Follow up: IV Status: Completed infusion bs1 Outcome: 20:08 Discharge ordered by MD. pm1 21:40 Discharged to home via wheelchair, with family. bs1 21:40 Condition: stable 21:40 Discharge instructions given to patient, family, Instructed on discharge instructions, follow up and referral plans. medication usage, Demonstrated understanding of instructions, follow-up care, medications, Prescriptions given X 3. 21:42 Patient left the ED. bs1 Addendum: 06/17/2018 13:42 Addendum: Culture Results: Positive urine culture. No further action required. Bacteria s s sensitive to prescribed antibiotic. Signatures: Dispatcher [employer] Elsy Cabral, RN RN aj1 Barry Laurent, SIZER HAND SIZER HAND Skye Zhou Shelby, RN RN ss Silviano Alvarado, HYDROTHERAPIST HYDROTHERAPIST pm1 Karie Barney RN RN Soraya Ramos jb5 Kristina Mathews RN RN bs1
[2018-06-14 21:56] VITALS: BP 100/81; TEMP 99.5; O2SAT 98
== END 2018-06-14 21:42 | disposition home or self-care (01) ==
LOC: ER 16:42
DX: J18.9 Pneumonia, unspecified organism (principal); E86.0 Dehydration; E83.52 Hypercalcemia; C34.90 Malignant neoplasm of unspecified part of unspecified bronchus or lung; I10 Essential (primary) hypertension; Z87.891 Personal history of nicotine dependence
CPT/HCPCS: 36415; 51702; 71045; 80048; 81003; 81015; 85025; 87040; 87077; 87086; 87088; 87186; 87804; 96361; 96365; 96375; 99284; J0696; J2405; J7030